=== PATIENT | female | born 1960 | race Caucasian/White ===

== ENCOUNTER 2017-03-14 09:19 | Emergency (ER) | payer OTHER ==
[~2017-03-14] VITALS: Ht 157.5 cm; Wt 67.0 kg
[~2017-03-14 09:19] MED LIST: CIPR500T4 PO; HYDR-3498 PO; HYOS0.1212 SL; OMEP20CA16 PO; TYL500 PO
[2017-03-14 09:21] VITALS: Ht 157.5 cm; Wt 67.0 kg
--- NOTE | 2017-03-14 10:20 | RADRPT ---
PROCEDURE: Chest Radiograph. CLINICAL INDICATION: Cough TECHNIQUE: Single frontal chest radiograph. COMPARISON: None available FINDINGS: Heart size is within normal limits. Atherosclerotic calcifications are present. No infiltrate or effusion is seen. The bones are intact. IMPRESSION: 1. Unremarkable chest radiograph. RPTAT: KK .Layo Alcantara MD, MD Date Time Electronically viewed and signed by .Layo Alcantara MD, on 03/14/2017 10:20 .B/
[2017-03-14] MEDS ORDERED: BENZ100C70 PO (10:34)
[2017-03-14] MEDS ORDERED: IBUP400T22 PO (10:34)
[2017-03-14] MEDS ORDERED: SODI30SP2 NS (10:34)
[2017-03-14] MEDS ORDERED: ACET500C5 PO (10:34)
--- NOTE | 2017-03-14 10:39 | ERD ---
ER Documentation Chief Complaint Date/Time DATE: 03/14/17 TIME: 10:[address],cough since saturday HPI Patient is a 56-year-old female who presents to the ED with sore throat, cough, congestion 7 days. She states that her grandson has had similar symptoms at home. She also complains of congestion. Denies hemoptysis or night sweats. She denies shortness of breath or difficulty breathing. She denies fever or chills. She denies abdominal pain, nausea, vomiting or diarrhea. She denies leg pain or swelling. Denies recent travel or recent surgeries. Denies headache or dizziness. She states that she has taken Robitussin and Motrin for her symptoms with minimal relief. ROS All systems reviewed and are negative except as per history of present illness. Medications Home Meds Active Scripts Sodium Chloride (Saline Nasal [place]) 30 Ml [place], 30 ML NS BID for 14 Days, SPRAY Prov:ALEXANDRA HEARN-C 03/14/17 Benzonatate* (Tessalon Perle*) 100 Mg Capsule, 100 MG PO Q8H Y for COUGH for 14 Days, CAP Prov:ALEXANDRA HEARN-C 03/14/17 Acetaminophen* (Tylophen*) 500 Mg Capsule, 1 CAP PO Q6H Y for PAIN AND OR ELEVATED TEMP, #20 CAP Prov:ALEXANRDA HEARN PA-C 03/14/17 Ibuprofen* (Motrin*) 400 Mg Tab, 400 MG PO Q6, #30 TAB Prov:ALEXANDRA HEARN PA-C 03/14/17 Hydrocodone Bit-Acetaminophen* ([place]*) 5-325 Mg Tab, 1 TAB PO Q6 Y for PAIN, # 10 TAB Prov:MICHELLE DERAS DO 10/25/15 Ciprofloxacin Hcl* (Ciprofloxacin Hcl*) 500 Mg Tablet, 500 MG PO BID for 3 Days , TAB Prov:MICHELLE DERAS 10/25/15 Reported Medications Hyoscyamine Sulfate* (Hyoscyamine Sulfate*) 0.125 Mg Tab.subl, 0.125 MG SL Q4H Y for PAIN, TAB 10/04/14 Acetaminophen* (Tylenol*) 500 Mg Tab, 500 MG PO Q4H Y for MILD PAIN LEVEL 1-3, TAB 10/04/14 Omeprazole* (Omeprazole*) 20 Mg Capsule.dr, 20 MG PO DAILY, CAP 10/04/14 Allergies Allergies: Coded Allergies: No Known Allergy (Unverified , 10/25/15) PMhx/Soc History of Surgery: No Anesthesia Reaction: No Hx Neurological Disorder: No Hx Respiratory Disorders: No Hx Cardiac Disorders: No Hx Psychiatric Problems: No Hx Miscellaneous Medical Probl: Yes (lumbar radiculitis, gastritis, postmenopausal) Hx Alcohol Use: No Hx Substance Use: No Hx Tobacco Use: No FmHx Family History: No coronary disease, No diabetes, No other Physical Exam Vitals Vital Signs Date Time Temp Pulse Resp B/P Pulse Ox O2 Delivery O2 Flow Rate FiO2 03/14/17 09:21 98.4 80 18 131/68 99 Physical Exam GENERAL: Well-developed, well-nourished female. Appears in no acute distress. HEAD: Normocephalic, atraumatic. EYES: Pupils are equally reactive bilaterally. EOMs grossly intact. No conjunctival erythema. ENT: Moist mucous membranes. No uvula deviation. No kissing tonsils. No exudates. NECK: Supple. No lymphadenopathy or thyromegaly. No meningismus. negative kernig. negative brudinski. LUNG: Clear to auscultation bilaterally. No rhonchi, wheezing, rales or coarse breath sounds. HEART: Regular rate and rhythm. No murmurs, rubs or gallops. Extremities: Equal pulses bilaterally. No peripheral clubbing, cyanosis or edema. No unilateral leg swelling. Negative Homans sign NEUROLOGIC: Alert and oriented. Moving all four extremities. 5/5 strength in all extremities. Normal speech. Steady gait. SKIN: Normal color. Warm and dry. No rashes or lesions. Capillary refill < 2 seconds Procedures/MDM ER COURSE: I kept the patient and/or family informed of laboratory and diagnostic imaging results throughout the emergency room course. IMAGING STUDIES [place] [id number] Radiology Main Line: [phone] DIAGNOSTIC IMAGING REPORT Patient: RAVEN COOPER : 1960 Age: 56 Sex: F MR #: [id number] DOS: 03/14/17 1000 Ordering MD: ALEXANDRA HEARN PA-C Location: [facility] Room/Bed: PROCEDURE: Chest Radiograph. CLINICAL INDICATION: Cough TECHNIQUE: Single frontal chest radiograph. COMPARISON: None available FINDINGS: Heart size is within normal limits. Atherosclerotic calcifications are present. No infiltrate or effusion is seen. The bones are intact. IMPRESSION: 1. Unremarkable chest radiograph. RPTAT: KK .Layo Alcantara MD, MD Date Time Electronically viewed and signed by .Layo Alcantara MD, MD on 2016 10:20 .B/ CC: ALEXANDRA HEARN PA-C MEDICAL DECISION MAKING: This is a 56-year-old female who presents with cough, congestion 1 week. Vital signs were reviewed. Patient is afebrile. Patient is not hypoxic. Patient is not toxic or ill-appearing. Her oxygen saturation is within normal limits. Patient likely has URI of viral etiology. Her x-rays read by radiologist is unremarkable. Low suspicion for pneumonia, PE, pneumothorax, ACS, epiglottitis , obstruction, TB, pertussis, meningitis, sepsis. DISCHARGE: At this time, patient is stable for discharge and outpatient management with no new complaints during the ER course. Patient was sent home with Tessalon Perles , Tylenol, Motrin and saline nasal spray.. Patient will be discharged home with instructions to recheck for new or worsening symptoms such as fever, nausea, weakness, LOC and to follow up with primary care in the next 1-2 days. Patient was advised to return to the ER for any new or worsening symptoms. Plan was discussed and patient and/or family understands and agrees. Home instructions were given. Departure Diagnosis: Primary Impression: URI, acute Condition: Stable Patient Instructions: Uri, Viral, No Abx (Adult) Additional Instructions: Llame al doctor MAANA y jennifer eleazar WOJCIECH PARA DENTRO DE 1-2 ENCINAS.Dgale a la secretaria que nosotros le instruimos hacer esta wojciech.Avise o llame si guardado condicin se empeora antes de la wojciech. Regresa aqui si peor o no mejor. ALEXANDRA HEARN PA-C Mar 14, 2017 10:39
== END 2017-03-14 10:40 | disposition home or self-care (01) ==
LOC: FTE 09:19
DX: J06.9 Acute upper respiratory infection, unspecified (principal)
CPT/HCPCS: 71010

== ENCOUNTER 2017-04-13 15:42 | Emergency (ER) | payer OTHER ==
[~2017-04-13] VITALS: Ht 160 cm; Wt 59.5 kg
[~2017-04-13 15:42] MED LIST changes: +ACET500C5 PO; +BENZ100C70 PO; +IBUP400T22 PO; +SODI30SP2 NS
[2017-04-13 15:44] VITALS: Ht 160 cm; Wt 59.5 kg
[2017-04-13] MEDS ORDERED: SOD CHLORIDE 0.9% 1,000 ML IV STA (16:05)
[2017-04-13] MEDS ORDERED: morphine 4 MG/ML VIAL IV STA (16:05)
[2017-04-13] MEDS ORDERED: ONDANSETRON 4 MG INJ IV STA (16:05)
[2017-04-13 16:18] LABS: ADD SCAN DIFF NO
[2017-04-13 16:20] LABS: BASOPHILS % 0.5 % (0.0-2.0); EOSINOPHILS # 0.1 10^3/ul (0.0-0.5); EOSINOPHILS % 1.4 % (0.0-7.0); HEMATOCRIT 37.5 % (37.0-47.0); HEMOGLOBIN 12.6 g/dl (12.0-16.0); LYMPHOCYTES # 2.4 10^3/ul (0.8-2.9); LYMPHOCYTES % 36.3 % (15.0-51.0); MEAN CORPUSCULAR HEMOGLOBIN 30.7 pg (29.0-33.0); MEAN CORPUSCULAR HGB CONC 33.6 g/dl (32.0-37.0); MEAN CORPUSCULAR VOLUME 91.5 fl (82.0-101.0); MEAN PLATELET VOLUME 9.5 fl (7.4-10.4); MONOCYTE # 0.3 10^3/ul (0.3-0.9); MONOCYTES % 4.6 % (0.0-11.0); NEUTROPHIL # 3.7 10^3/ul (1.6-7.5); PLATELET COUNT 246 10^3/UL (140-415); RED CELL DISTRIBUTION WIDTH 12.1 % (11.5-14.5); WHITE BLOOD COUNT 6.5 10^3/ul (4.8-10.8)
[2017-04-13 16:28] LABS: ADD UMIC YES; URINE BILIRUBIN (Dip) NEGATIVE (NEGATIVE); URINE BLOOD (Dip) 3+ (NEGATIVE); URINE COLOR LT. YELLOW (YELLOW); URINE GLUCOSE (Dip) NEGATIVE (NEGATIVE); URINE KETONES (Dip) NEGATIVE (NEGATIVE); URINE LEUKOCYTE ESTERASE (Dip) NEGATIVE (NEGATIVE); URINE NITRITE (Dip) NEGATIVE (NEGATIVE); URINE TOTAL PROTEIN (Dip) NEGATIVE (NEGATIVE); URINE UROBILINOGEN (Dip) 0.2 E.U./dL (0.1-1.0)
[2017-04-13] MEDS ORDERED: IBUPROFEN 600 MG TAB PO ONE (16:30)
[2017-04-13 16:33] LABS: ALBUMIN 4.9 g/dl (3.3-4.9)
[2017-04-13 16:34] LABS: POTASSIUM 3.7 mmol/L (3.5-5.1)
[2017-04-13 16:36] LABS: ALBUMIN/GLOBULIN RATIO 1.48; BILIRUBIN,INDIRECT 0.4 mg/dl (0-1.1); BILIRUBIN,TOTAL 0.4 mg/dl (0.2-1.3); CREATININE 0.55 mg/dl (0.44-1.00); TOTAL PROTEIN 8.2 g/dl (6.1-8.1)
[2017-04-13 16:37] LABS: CALCIUM 9.9 mg/dl (8.4-10.2)
--- NOTE | 2017-04-13 17:12 | RADRPT ---
PROCEDURE: CT Abdomen and Pelvis without contrast. CLINICAL INDICATION: Abdominal pain TECHNIQUE: CT of the abdomen and pelvis was performed on a multi-detector scanner without IV contr ast. Coronal and sagittal images were reformatted from the axial data set. One or more of the foll owing dose reduction techniques were used: automated exposure control, adjustment of the mA and/or kV according to patient size, use of iterative reconstruction technique. CTDI = 6.46 mGy. DLP = 344 .29 mGy-cm. COMPARISON: CT, 10/25/2015 FINDINGS: CT abdomen: The lung bases are clear. The heart size is normal, without pericardial effusion. Liver, gallbladd er, biliary tree, pancreas, spleen, adrenal glands and kidneys are unremarkable. There is no urolit hiasis or obstructive uropathy. The stomach is grossly unremarkable. The aorta is of normal caliber. There is no retroperitoneal lymphadenopathy. The quan hepatis reg ion is clear. CT pelvis: No bowel obstruction, free intraperitoneal air or abscess is identified. The appendix is well visua lized and normal. There is no diverticulosis, diverticulitis or colitis. Mild inflammation/edema i s seen centrally within the small bowel mesenteric fat, compatible with mesenteric panniculitis. Ur inary bladder, uterus and adnexa are grossly unremarkable. No pelvic mass, free fluid or lymphadeno sahra is identified. The surrounding osseous structures are unremarkable. No osteolytic or osteoblastic lesion is detect ed. IMPRESSION: 1. Findings compatible with mild mesenteric panniculitis, similar in appearance to the prior CT. 2. No mass or lymphadenopathy is identified. RPTAT: QQ .Charles Muñiz MD, Date Time Electronically viewed and signed by .Charles Muñiz MD, MD on 04/13/2017 17:12 .R/
[2017-04-13] MEDS ORDERED: CALC500T91 PO (17:46)
[2017-04-13] MEDS ORDERED: CHOL100062 PO (17:46)
[2017-04-13] MEDS ORDERED: GABA300C16 PO (17:46)
[2017-04-13] MEDS ORDERED: MAG355OR14 PO (17:48)
[2017-04-13] MEDS ORDERED: IBUP-1542 PO (17:48)
[2017-04-13] MEDS ORDERED: LEVO50TA74 PO (17:51)
[2017-04-13 18:30] VITALS: BP 134/67; PULSE 71; RESP 16; TEMP 98.3
--- NOTE | 2017-04-14 00:37 | ERD ---
ER Documentation Chief Complaint Date/Time DATE: 04/14/17 TIME: 00:34 Chief Complaint RLQ PAIN RADIATING TO BACK X 4 DAYS HPI 56-year-old woman complains of right lower quadrant abdominal pain and back pain 4 days, she has had these symptoms in the past. She states it occurs about once per year. She denies fevers or chills, no weight loss, no chest pain or shortness of breath, no dysuria, no trauma or domestic violence. ROS All systems reviewed and are negative except as per history of present illness. Medications Home Meds Active Scripts Mag Hydrox/Al Hydrox/Simeth (Maalox Advanced Suspension) 355 Ml Oral.susp, 2 TSP PO TID for PAIN AND/OR INFLAMMATION, #24 OZ Prov:RENÉE WILL MD 04/13/17 Ibuprofen* (Motrin*) 600 Mg Tab, 600 MG PO Q8 for PAIN AND/OR INFLAMMATION, #30 TAB Prov:RENÉE WILL MD 04/13/17 Reported Medications Levothyroxine Sodium* (Levothyroxine Sodium*) 50 Mcg Tablet, 50 MCG PO BEFORE BREAKFAST, #30 TAB 04/13/17 Cholecalciferol* (Vitamin D3*) 1,000 Unit Tablet, 1000 UNIT PO DAILY, TAB 04/13/17 Calcium Carbonate ([id number]) 500 Mg Tablet, 500 MG PO BID, TAB 04/13/17 Gabapentin* (Gabapentin*) 300 Mg Capsule, 900 MG PO QHS, #270 CAP 04/13/17 Acetaminophen* (Tylenol*) 500 Mg Tab, 500 MG PO Q4H Y for MILD PAIN LEVEL 1-3, TAB 10/04/14 Discontinued Reported Medications Hyoscyamine Sulfate* (Hyoscyamine Sulfate*) 0.125 Mg Tab.subl, 0.125 MG SL Q4H Y for PAIN, TAB 10/04/14 Omeprazole* (Omeprazole*) 20 Mg Capsule.dr, 20 MG PO DAILY, CAP 10/04/14 Discontinued Scripts Sodium Chloride (Saline Nasal [place]) 30 Ml [place], 30 ML NS BID for 14 Days, SPRAY Prov:ALEXANDRA HEARN PA-C 03/14/17 Benzonatate* (Tessalon Perle*) 100 Mg Capsule, 100 MG PO Q8H Y for COUGH for 14 Days, CAP Prov:ALEXANDRA HEARN PA-C 03/14/17 Acetaminophen* (Tylophen*) 500 Mg Capsule, 1 CAP PO Q6H Y for PAIN AND OR ELEVATED TEMP, #20 CAP Prov:ALEXANDRA HEARN PA-C 03/14/17 Ibuprofen* (Motrin*) 400 Mg Tab, 400 MG PO Q6, #30 TAB Prov:ALEXANDRA HEARN PA-C 03/14/17 Hydrocodone Bit-Acetaminophen* ([place]*) 5-325 Mg Tab, 1 TAB PO Q6 Y for PAIN, # 10 TAB Prov:MICHELLE DERAS 10/25/15 Ciprofloxacin Hcl* (Ciprofloxacin Hcl*) 500 Mg Tablet, 500 MG PO BID for 3 Days , TAB [facility] 10/25/15 Allergies Allergies: Coded Allergies: No Known Allergy (Unverified , 10/25/15) PMhx/Soc Hypothyroidism, hypercholesterolemia, hypertension, gastritis History of Surgery: No Anesthesia Reaction: No Hx Neurological Disorder: No Hx Respiratory Disorders: No Hx Cardiac Disorders: No Hx Psychiatric Problems: No Hx Miscellaneous Medical Probl: Yes (lumbar radiculitis, gastritis, postmenopausal) Hx Alcohol Use: No Hx Substance Use: No Hx Tobacco Use: No Smoking Status: Unknown if ever smoked FmHx Family History: No diabetes Physical Exam Vitals Vital Signs Date Time Temp Pulse Resp B/P Pulse Ox O2 Delivery O2 Flow Rate FiO2 04/13/17 18:30 98.3 71 16 134/67 99 04/13/17 15:44 99.3 62 16 162/70 99 Physical Exam GENERAL: Well-developed, well-nourished, well-hydrated, in no apparent distress , looks nontoxic in appearance HEENT: Moist mucous membranes, pink conjunctiva, no cervical spine tenderness or step-off deformities, no goiter, no jaundice or icterus, extraocular movements intact without pain. No submandibular induration, and no pharyngeal erythema NEURO: Alert and oriented 3, cranial nerves II through XII intact bilaterally, pupils equal round reactive to light, no focal deficits or facial asymmetry, sensation intact distally Strength 5/5 in upper and lower extremities bilaterally CARDIAC: Regular rate and rhythm, no murmurs rubs or gallops LUNGS: Clear bilaterally no wheezing crackles or stridor ABDOMEN: Soft nontender, no guarding, no rigidity, no rebound, no psoas sign no obturator sign. Normoactive bowel sounds SKIN: Warm and dry to touch, no abrasions, contusions, or hematomas, no lacerations, no ecchymosis, no target lesions, and without ulcers EXTREMITIES: No clubbing cyanosis or edema, calves are bilaterally symmetrical, no Homans sign, no popliteal cord sign. Distal pulses equal and bilateral PSYCH: Normal affect without agitation or irritability Result Diagram: 04/13/17 1600 04/13/17 1600 Results 24 hrs Laboratory Tests Test 04/13/17 16:00 White Blood Count 6.510^3/ul Red Blood Count 4.1010^6/ul Hemoglobin 12.6g/dl Hematocrit 37.5% Mean Corpuscular Volume 91.5fl Mean Corpuscular Hemoglobin 30.7pg Mean Corpuscular Hemoglobin Concent 33.6g/dl Red Cell Distribution Width 12.1% Platelet Count 18662^3/UL Mean Platelet Volume 9.5fl Neutrophils % 57.0% Lymphocytes % 36.3% Monocytes % 4.6% Eosinophils % 1.4% Basophils % 0.5% Nucleated Red Blood Cells % 0.0/100WBC Neutrophils # 3.710^3/ul Lymphocytes # 2.410^3/ul Monocytes # 0.310^3/ul Eosinophils # 0.110^3/ul Basophils # 0.010^3/ul Nucleated Red Blood Cells # 0.010^3/ul Urine Color LT. YELLOW Urine Clarity CLEAR Urine pH 5.5 Urine Specific [place] 1.025 Urine Ketones NEGATIVE Urine Nitrite NEGATIVE Urine Bilirubin NEGATIVE Urine Urobilinogen 0.2 E.U./dL Urine Leukocyte Esterase NEGATIVE Urine Microscopic RBC 10-25/HPF Urine Microscopic WBC 0-2/HPF Urine Hemoglobin 3+ Urine Glucose NEGATIVE% Urine Total Protein NEGATIVE Sodium Level 142mmol/L Potassium Level 3.7mmol/L Chloride Level 103mmol/L Carbon Dioxide Level 27mmol/L Anion Gap 16 Blood Urea Nitrogen 21mg/dl Creatinine 0.55mg/dl Glucose Level 100mg/dl Calcium Level 9.9mg/dl Total Bilirubin 0.4mg/dl Direct Bilirubin 0.00mg/dl Indirect Bilirubin 0.4mg/dl Aspartate Amino Transf (AST/SGOT) 30IU/L Alanine Aminotransferase (ALT/SGPT) 36IU/L Alkaline Phosphatase 90IU/L Total Protein 8.2g/dl Albumin 4.9g/dl Globulin 3.30g/dl Albumin/Globulin Ratio 1.48 Lipase 106U/L Current Medications Medications (Trade) Dose Ordered Sig/Sivan Route PRN Reason Start Time Stop Time Status Last Admin Dose Admin Sodium Chloride (NS) 1,000 ml @ 1,000 mls/hr Q1H STAT IV 04/13/17 16:05 04/13/17 17:04 DC 04/13/17 16:14 Morphine Sulfate (morphine) 4 mg ONCE STAT IV 04/13/17 16:05 04/13/17 16:06 DC 04/13/17 16:14 Ondansetron HCl (Zofran Inj) 4 mg ONCE STAT IV 04/13/17 16:05 04/13/17 16:06 DC 04/13/17 16:14 Ibuprofen (Motrin) 600 mg ONCE ONCE PO 04/13/17 16:30 04/13/17 16:31 DC 04/13/17 16:14 Procedures/MDM IV line was established patient was placed on bus driver/monitor rhythm strip revealed a sinus rhythm at about 80 bpm with upright P and T waves. Patient was afebrile. CBC and electrolytes are normal, liver function tests were normal, urine analysis was negative for infection. CT scan of the abdomen and pelvis was performed, given the patient's symptoms. There was no acute inflammatory or infectious pathology noted, vascular structures were unremarkable. Please refer radiologist's dictation for full report. I administered 1 L normal saline intravenously, ibuprofen 600 mg p.o., morphine 4 mg IV and Zofran 4 mg IV with good response. Differential diagnoses considered, included but not limited to acute coronary syndrome, pulmonary embolism, aortic dissection, abdominal aortic aneurysm, sepsis, stroke, meningitis, encephalitis, pneumonia, appendicitis, cholecystitis , bowel obstruction, pyelonephritis, nephrolithiasis, cystitis, as well as metabolic, hematologic, and electrolyte abnormalities. As well as abscess, cellulitis, fractures, and dislocations. Patient feels much better at this time, and vital signs are normal, symptoms have improved. I did give strict instructions to return to the ED if symptoms continue or worsen, patient will otherwise follow-up with primary care physician. Patient understood instructions and agreed to plan. Departure Diagnosis: Primary Impression: Abdominal pain Abdominal location: right lower quadrant Qualified Code: R10.31 - Right lower quadrant abdominal pain Condition: Good Patient Instructions: Abdominal Pain, Unknown Cause, (Female) RENÉE WILL MD April 14, 2017 00:37
== END 2017-04-13 18:33 | disposition home or self-care (01) ==
LOC: E/R 15:42
DX: R10.31 Right lower quadrant pain (principal); I10 Essential (primary) hypertension; E03.9 Hypothyroidism, unspecified
CPT/HCPCS: 36415; 74176; 80053; 81001; 83690; 85025; 96374; 96375; J2270; J2405; J7030; Z7502; Z7610; 81003